=== PATIENT | male | born 1955 | race African-American/Black ===

== ENCOUNTER 2020-04-06 19:51 | Inpatient (IN) | payer MEDICARE, OTHER ==
[~2020-04-06 19:51] MED LIST: Amiodarone 150 MG/3 ML VIAL ONE; Calcium Chloride 1 GM/10 ML Abboject SYRINGE ONE; EPINEPHrine 1 MG/10 ML Abboject SYRINGE ONE; Iopamidol-370 76% 500 ML 1 ML ONE; Magnesium 5 GM/10 ML Abboject SYRINGE ONE; Sodium Bicarb 50 MEQ/50 ML Abboject 8.4% SYRINGE ONE
[2020-04-06] MEDS ORDERED: Naloxone HCl 2 mg/2 ml Syringe ONE (19:57)
[2020-04-06] MEDS ORDERED: Sodium Bicarbonate 2.5 MEQ/5 ML VIAL ONE (20:03)
[2020-04-06] MEDS ORDERED: Magnesium 2 GM/50 ML BAG (IN WATER) ONE (20:19)
[2020-04-06] MEDS ORDERED: Norepinephrine 8 MG/0.9% NS 250 ML ONE (20:21)
[2020-04-06 20:26] LABS: Base Excess-Venous -8.3 mmol/L (-2.0 to 3.0); Bicarbonate (HCO3v) 24.1 mmol/L (22.0-28.0); CO2 Tension (PvCO2) 91.8 mmHg (40.0-50.0); Calcium, Ionized 1.37 mmol/L (1.15-1.33); Chloride 100 mmol/L (98-107); Hemoglobin - Calc 11.9 g/dL (14.0-18.0); Potassium 3.6 mmol/L (3.5-5.1); Sodium 143 mmol/L (138-145); T. Carbon Dioxide 26.9 mmol/L (22.0-28.0); vO2 Saturation-calc 68.8 % (60.0-85.0)
[2020-04-06 20:34] LABS: #Basophils 0.1 thou/uL (0.0-0.2); #Eosinphils 0.1 thou/uL (0.0-0.7); #Lymphocytes 4.5 thou/uL (1.20-3.40); #Monocytes 0.7 thou/uL (0.11-0.59); #Neutrophils 5.9 thou/uL (1.40-6.50); %Basophils 0.8 % (0.0-1.0); %Eosinophils 0.8 % (0.0-10.0); %Lymphocytes 40.3 % (21.0-51.0); %Monocytes 5.8 % (0.0-10.0); %Neutrophils 52.4 % (42.0-75.0); Hemoglobin 10.3 g/dL (14.0-18.0); Mean Corpuscular HGB CONC 31.5 g/dL (32.0-36.0); Mean Corpuscular Hemoglobin 29.8 pg (27.0-31.0); Mean Corpuscular Volume 94.6 fL (78.0-98.0); Mean Platelet Volume 7.7 fL (7.4-10.4); Platelet Count 189 thou/uL (130-400); RBC Distribution Width 14.7 % (11.5-14.5); Red Blood Cell (RBC) Count 3.45 mill/uL (4.70-6.10); White Blood Cell (WBC) Count 11.2 thou/uL (4.8-10.8)
[2020-04-06 20:40] LABS: INR-International Normal Ratio 1.3; PTT 42.4 sec (22.9-36.1); Prothrombin Time 16.2 sec (12.0-14.7)
[2020-04-06 20:40] LABS: Actual Bicarbonate (HCO3a) 15.7 mEq/L (22-28); Analyzer IN Cardio ER; Base Excess (BEa) -14.3 mEq/L (-2.0 to +3.0); CO2 Tension 55.9 mmHg (35.0-45.0); Calcium, Ionized (arterial) 1.34 mmol/L (1.12-1.30); Carboxyhemoglobin (COHb) 0.1 gm% (0.0-3.0); O2 Tension (PaO2), arterial 346.4 mmHg (> 80.0); Potassium - ABG Lab 3.43 mmol/L (3.70-5.30)
[2020-04-06 20:46] LABS: pH, Arterial 7.07 (7.35-7.45)
[2020-04-06] MEDS ORDERED: Cefepime 2 GM VIAL ONE (20:46)
[2020-04-06 20:47] LABS: ALV-art Gradient 296.725 mmHg (0-20); Puncture Site LRA
[2020-04-06 20:52] LABS: ALT (SGPT) 18 U/L (8-55); AST (SGOT) 32 U/L (5-34); Albumin 2.9 g/dL (3.4-4.8); Alkaline Phosphatase 160 U/L (40-110); Anion Gap 29 mmol/L (10-20); BUN (Urea Nitrogen) 31 mg/dL (8.4-25.7); Bilirubin, Total 0.5 mg/dL (0.2-1.2); CK (CPK) 175 U/L (30-200); Calc. Creatinine Clearance 0 mL/min (70-130); Calcium 10.8 mg/dL (7.8-10.44); Carbon Dioxide 21 mmol/L (23-31); Chloride 98 mmol/L (98-107); Globulin 4.8 g/dL (2.4-3.5); Glucose 224 mg/dL (80-115); Potassium 3.7 mmol/L (3.5-5.1); Protein, Total 7.7 g/dL (5.8-8.1); Sodium 144 mmol/L (136-145)
[2020-04-06] MEDS ORDERED: Rocuronium Bromide 10 MG/ML (10ML VIAL) ONE (20:54)
[2020-04-06] MEDS ORDERED: Fentanyl 100 MCG/2 ML VIAL ONE (20:57)
[2020-04-06] MEDS ORDERED: fentaNYL Citrate/PF 2,000 MCG in Sodium Chloride 0.9% 60 ML IV SCH ×2 (21:00→21:45)
[2020-04-06 21:10] LABS: Magnesium 2.2 mg/dL (1.6-2.6)
[2020-04-06] MEDS ORDERED: Ventilator Sedation Protocol 1 EACH FS ONE (21:35)
[2020-04-06] MEDS ORDERED: Ondansetron ODT 4 MG TAB PO PRN (21:35)
[2020-04-06] MEDS ORDERED: Ondansetron PF 4 MG/2 ML Vial IVP PRN (21:35)
[2020-04-06] MEDS ORDERED: Electrolyte Replacement Protocol 1 EACH FS ONE (21:35)
[2020-04-06] MEDS ORDERED: Acetaminophen 650 MG Suppository PR PRN (21:35)
[2020-04-06] MEDS ORDERED: hydrALAZINE 20 MG/ML VIAL SLOW IVP PRN (21:35)
[2020-04-06] MEDS ORDERED: Vancomycin 1 GM/200 ML BAG ONE ×2 (21:39→21:43)
[2020-04-06] MEDS ORDERED: DISCONTINUE PREVIOUS NARCOTIC PAIN MEDICATIONS AND BENZODIAZEPINES FS SCH (21:45)
[2020-04-06] MEDS ORDERED: Propofol 1,000 MG/100 ML VIAL IV PRN (21:45)
[2020-04-06] MEDS ORDERED: Lorazepam 2 MG/ML VIAL SLOW IVP PRN (21:45)
[2020-04-06] MEDS ORDERED: Morphine 2 MG/ML VIAL SLOW IVP PRN (21:45)
[2020-04-06] MEDS ORDERED: Fentanyl BOLUS 250 ML IVPB PRN (21:45)
[2020-04-06] MEDS ORDERED: Propofol BOLUS 1,000 MG/100 ML VIAL IV PRN (21:45)
[2020-04-06 22:38] LABS: SARS-CoV-2 NAA Rapid Test Not Detected (NotDetected)
--- NOTE | 2020-04-06 22:52 | RAD ---
ONE VIEW CHEST: 04/06/20 HISTORY: Intubated. COMPARISON: 11/08/12. FINDINGS: Endotracheal tube is noted in place with tip overlying the T4 vertebral body and above the level of t he emmanuel. Nasogastric tube is also noted in place which courses in the upper abdomen, but the tip is not imaged. There are postoperative changes involving the right hemithorax with surgical clips overlying the medi astinum and right hilar region with radiopaque sutures overlying the right upper lobe. This examination is obtained in a shallow depth of inspiration. There is increased linear and patchy parenchymal densities at the right lung base which could be related to volume loss, but pneumonitis is a possibility. There is mild elevation of the right hemidiaphragm. The cardiac silhouette is magni fied by projection but does appear mildly enlarged. There is suboptimal evaluation of the left lung b ase due to overlying cardiac silhouette and soft tissue density. Vascular calcifications are seen in the thoracic aorta. No other interval change. IMPRESSION: 1. Postoperative changes right hemithorax. 2. Interstitial and patchy parenchymal densities right lung base which could be related to atele ctasis, but pneumonia is a possibility. Follow-up to resolution is recommended. 3. Endotracheal tube and nasogastric tube noted in place. POS: MARION
[2020-04-06] MEDS: Sodium Chloride 0.9% 1,000 ML IV SCH (23:18)
[2020-04-07 01:09] LABS: Lactic Acid 3.8 mmol/L (0.5-2.2)
--- NOTE | 2020-04-07 01:32 | HP ---
PRIMARY CARE PROVIDER: Enriqueta Clayton. CHIEF COMPLAINT: Found down unresponsive in cardiac arrest. HISTORY OF PRESENT ILLNESS: This is a 65-year-old male, who apparently collapsed while shopping at [email or web address]. EMS personnel were notified at which point, the patient underwent CPR and ACLS protocol. The history is obtained after discussions with the ER attending as well as review of previous records in [facility], as the patient is unresponsive on mechanical ventilation. The patient was pulseless with cardiac arrest with CPR in progress at the time of evaluation in the emergency room. The patient received multiple medications including epinephrine, calcium, sodium bicarbonate, as well as undergoing cardioversion due to SVT which progressed to ventricular tachycardia and torsades. The patient received magnesium in addition to vasopressor support with Levophed. The patient received empiric antibiotic coverage with cefepime and vancomycin during initial resuscitation. The patient was intubated prior to admission and continued on mechanical ventilation with SIMV. The patient had return of circulation with heart rates in the 120s to 130s on a Levophed infusion as well as amiodarone. The patient was referred to the Hospitalist Service for further evaluation and admission to the Critical Care Unit. PAST MEDICAL HISTORY: 1. End-stage renal disease, on hemodialysis. 2. Hepatitis C with questionable cirrhosis. 3. Congestive heart failure, unknown type. 4. History of tuberculosis treated in 1984. 5. Hypertension. 6. History of noncompliance. PAST SURGICAL HISTORY: Status post AV fistula for hemodialysis. CURRENT MEDICATIONS: Reviewed and unknown, as the patient unable to provide a history with CPR in progress. ALLERGIES: NO KNOWN DRUG ALLERGIES. FAMILY HISTORY: Positive for chronic kidney disease and diabetes mellitus. SOCIAL HISTORY: Resides in the [place], [place] area. No alcohol, tobacco, or illicit drug use. History of hepatitis C. REVIEW OF SYSTEMS: Unobtainable due to patient with respiratory failure, on mechanical ventilation. PHYSICAL EXAMINATION: VITAL SIGNS: Currently, blood pressure 161/105, pulse 104, respiratory rate is 16 on mechanical ventilation. FiO2 40%, temperature 98 degrees Fahrenheit, O2 saturation 96% on FiO2 of 40% by mechanical ventilation. GENERAL APPEARANCE: This is a 65-year-old male, ill appearing, on mechanical ventilation, obtunded. HEENT: Pupils are minimally reactive to light and accommodation. ET tube in place. Nares patent. NECK: Supple. No cervical adenopathy. No thyromegaly. No carotid bruits. No JVD noted. Scalp is atraumatic. CHEST: Bibasilar coarse breath sounds diminished in the bases with scattered crackles. CARDIOVASCULAR: S1 and S2 with tachycardia. ABDOMEN: Distended. Bowel sounds are positive. Liver margin palpable 4 cm below the costal margin on the right upper quadrant. Positive fluid wave. Umbilical hernia noted. EXTREMITIES: Generalized atrophy noted. Mild edema to the ankle region bilaterally. Pulses diminished bilaterally at the dorsalis pedis, posterior tibial, and popliteal arteries bilaterally. Capillary refill less than 2 seconds. NEUROLOGIC: Sedate on mechanical ventilation, unresponsive. PERTINENT LABORATORY AND X-RAY FINDINGS: Sodium 144, potassium 3.7, chloride 98, CO2 of 21, anion gap 29, BUN 31, creatinine 7.80, glucose 224, lactic acid level 12.5, calcium 10.8, AST 32, ALT of 18, total bilirubin 0.5, alkaline phosphatase 160. Troponin I 0.129. Albumin 2.9. Lipase 86. TSH 7.87. CBC showed a white blood cell count of 11.2, hemoglobin 10, hematocrit 33, platelet count 189 with normal differential. PT 16.2, INR 1.3, PTT 42.4. ABG dated 04/06/2020 at 2038 p.m. showed a pH of 7.07, pCO2 of 55.9, PO2 of 346, O2 saturation 99.5% on 100% FiO2 SIMV. Portable chest x-ray dated 04/06/2020, by my interpretation shows pulmonary vascular prominence in bilateral lung cortez. Questionable effusion in the left lower lung zone. Cardiomegaly. Endotracheal tube with tip above the emmanuel. Nasogastric tube below the diaphragm. [place] noted in the mid chest region. Telemetry monitoring shows ventricular tachycardia versus torsades, currently sinus mechanism with sinus tachycardia with heart rates in the 110s to 120s. ASSESSMENT AND PLAN: 1. Cardiac arrest with return of spontaneous circulation. The patient will be admitted to the Critical Care Unit. We will continue amiodarone infusion. Check 2-D transthoracic echocardiogram in the a.m. Consult Cardiology Service for further recommendations. Serial troponin I and BNP. Monitor electrolyte status and check magnesium level in the a.m. Successful return of spontaneous circulation after aggressive ACLS protocol. 2. Acute hypoxic hypercapnic respiratory failure. Continue mechanical ventilation with SIMV at 40% FiO2. Serial ABG monitoring. Ventilator sedation protocol. Consult Pulmonology Service in the a.m. Repeat portable chest x-ray in the a.m. 3. End-stage renal disease with hemodialysis. We will consult Nephrology Service for timing of next hemodialysis session. Current potassium level within normal limits. 4. Sepsis with unclear source. We will continue general sepsis protocol. Serial lactic acid monitoring. Empiric IV antibiotic therapy with cefepime and vancomycin. Blood and urine cultures pending. 5. Hypothyroidism. We will check free T4 level in the a.m. 6. Acute toxic metabolic encephalopathy. We will continue supportive management as outlined previously. CT of the brain pending. Continue to monitor mental status in the next 24 to 48 hours. 7. Prophylaxis. SCDs while in bed. Pepcid 20 mg IV b.i.d.. CODE STATUS: Full. Surrogate medical decision maker not identified. Total critical care time is 55 minutes. Job ID: [id number]
[2020-04-07 03:02] LABS: Hemoglobin 10.8 g/dL (14.0-18.0); Mean Corpuscular HGB CONC 31.9 g/dL (32.0-36.0); Mean Corpuscular Hemoglobin 29.2 pg (27.0-31.0); Mean Corpuscular Volume 91.5 fL (78.0-98.0); Mean Platelet Volume 7.3 fL (7.4-10.4); Platelet Count 229 thou/uL (130-400); RBC Distribution Width 14.6 % (11.5-14.5); Red Blood Cell (RBC) Count 3.71 mill/uL (4.70-6.10); White Blood Cell (WBC) Count 23.1 thou/uL (4.8-10.8)
[2020-04-07 03:15] LABS: Troponin I 5.373 ng/mL (< 0.028)
[2020-04-07 03:44] LABS: ALT (SGPT) 21 U/L (8-55); AST (SGOT) 54 U/L (5-34); Alkaline Phosphatase 262 U/L (40-110); Anion Gap 23 mmol/L (10-20); BUN (Urea Nitrogen) 36 mg/dL (8.4-25.7); Bilirubin, Total 0.6 mg/dL (0.2-1.2); Calc. Creatinine Clearance 13 mL/min (70-130); Calcium 8.6 mg/dL (7.8-10.44); Carbon Dioxide 23 mmol/L (23-31); Chloride 99 mmol/L (98-107); Glucose 203 mg/dL (80-115); Lipase 56 U/L (8-78); Potassium 3.9 mmol/L (3.5-5.1); Sodium 141 mmol/L (136-145)
[2020-04-07 03:51] LABS: Band 5 % (5-11); Lymphocytes 2 % (21-51); MDiff Complete? YES; Monocytes 4 % (0-10); Neutrophil 89 % (42-75)
[2020-04-07] MEDS: Amiodarone 450 MG, Admixture Fee 1 EACH in Dextrose 5% in Water 250 ML IVPB SCH ×2 (05:59→19:58)
--- NOTE | 2020-04-07 06:27 | CT ---
CT OF THE BRAIN WITHOUT CONTRAST: Date: 04/06/2020 COMPARISON: None. HISTORY: Found down at [facility]. CPR in progress. Head trauma. TECHNIQUE: Multiple contiguous axial images were obtained in a CT of the brain without contrast. FINDINGS: There are scattered hypodensities in the subcortical and periventricular white matter, likely seconda ry to small vessel ischemic disease. No large confluent infarction is seen. There is no evidence of h ydrocephalus, intracranial hemorrhage, or extra-axial fluid collection. Soft tissue swelling is seen in the posterior nasopharynx. The visualized paranasal sinuses and masto id air cells are well aerated. IMPRESSION: No evidence of acute intracranial abnormality. POS: EAA
--- NOTE | 2020-04-07 06:58 | CT ---
CTA CHEST WITH CONTRAST: Date: 04/06/2020 HISTORY: Found down in [employer]. CPR in progress. TECHNIQUE: Multiple contiguous axial images were obtained in a CTA of the chest with contrast per pulmonary embo lism protocol. 3D oblique MIP reformats and direct coronal reformats were performed. FINDINGS: There is global cardiomegaly. There is right heart dysfunction with a significant amount of extension of the contrast down the inferior vena cava. Calcifications are seen in the coronary arteries and ao rta. There is a small pericardial effusion. No hilar or mediastinal lymphadenopathy are appreciated. There is an endotracheal tube with its tip immediately at the emmanuel. A NG tube is seen with its tip in the stomach. There are fractures of the anterior left second through fourth ribs and right third through fifth rib s. Degenerative changes are seen in the spine. There are diffuse increased interstitial lung markings in the lungs. Emphysematous changes are seen t hroughout. There are scattered calcified granulomas in the lung bases. There is more confluent air sp bobbi opacity in the lung bases, right greater than left, with associated honeycombing. This may repres ent chronic parenchymal change rather than acute infiltrate, but superimposed acute infiltrate in the lung bases cannot be excluded. No pleural effusion or pneumothorax seen. Please see dedicated abdominal CT for findings below the diaphragm. IMPRESSION: 1. No evidence of pulmonary thromboembolism. 2. Cardiomegaly. 3. Slightly low-lying endotracheal tube should be withdrawn approximately 2.0 cm. 4. Bilateral rib fractures likely secondary to recent CPR. 5. Chronic lung disease with areas of air space consolidation in the lower lobes. This may represent chronic consolidation rather than acute consolidation, but acute processes are still a possibility. POS: KRYSTLE
--- NOTE | 2020-04-07 07:05 | CT ---
CT ABDOMEN AND PELVIS WITH CONTRAST: Date: 04/06/2020 COMPARISON: None. HISTORY: Patient found down in [facility] with CPR in progress. Abdominal pain and distention. TECHNIQUE: Multiple contiguous axial images were obtained in a CT of the abdomen and pelvis with contrast. Sagit nichelle and coronal reformats were performed. FINDINGS: There is a moderate amount of ascites. The anterior aspect of the mesentery demonstrates a questionab le nodular appearance. The liver has a relatively smooth contour without focal liver abnormality. There are innumerable tiny cysts in both kidneys. The majority of these cysts are low density and rep resent simple cysts. However, a few of these are higher density and well-circumscribed measuring up t o 1.5 cm in size. These could represent hyperdense cysts. The gallbladder has a partially calcified wall in the neck region. The adrenal glands, spleen, and pa ncreas are unremarkable. The large and small bowel are unremarkable. A Mckoy catheter decompresses the urinary bladder. Athero sclerotic calcifications are seen in the aorta. No abdominal or pelvic lymphadenopathy is appreciated . A central venous catheter is seen in the left inguinal region. There is a small umbilical hernia containing ascitic fluid. There is soft tissue density in the right inguinal lymph node measuring 4.8 cm in size. There is diffuse soft tissue anasarca. Please see dedicated chest CT for findings above the diaphragm . Degenerative changes are seen in the spine. IMPRESSION: 1. Moderate to large ascites. 2. Multiple bilateral renal cysts. There are hyperdense lesions in the kidneys which may represent h yperdense cysts. Renal masses cannot be entirely excluded. 3. Right inguinal mass versus enlarged lymph node. Correlate with physical examination. A hematoma i s also a possibility if the patient had attempted central venous catheter placement in the right ingu inal region. POS: EAA
[2020-04-07 07:14] LABS: Actual Bicarbonate (HCO3a) 25.8 mEq/L (22-28); Base Excess (BEa) 2.2 mEq/L (-2.0 to +3.0); Calcium, Ionized (arterial) 1.07 mmol/L (1.12-1.30); Carboxyhemoglobin (COHb) 0.9 gm% (0.0-3.0); Hemoglobin (Hb) 12.5 g/dL (14.0-18.0); O2 Tension (PaO2), arterial 305.8 mmHg (> 80.0); pH, Arterial 7.46 (7.35-7.45)
[2020-04-07 07:31] LABS: Puncture Site LRA
--- NOTE | 2020-04-07 08:30 | CON ---
DATE OF CONSULTATION: 04/07/2020 Forty minutes of critical care time. CONSULTING PHYSICIAN: Dr. James from the hospice group. REASON FOR CONSULTATION: The patient had a prolonged cardiac arrest. HISTORY OF PRESENT ILLNESS: History is obtained solely reading the notes in the chart as the patient cannot give any history because he is unconscious. He is a 65-year-old black male, who was found collapsed in a bathroom at [facility]. It is unknown how long he was down before he was found. He had at least 30 minutes of CPR before return of spontaneous circulation. I am told he did have ventricular tachycardia and torsade during the code. He received cardioversion. He has been on amiodarone drip since being in the ICU. PAST MEDICAL HISTORY: 1. End-stage renal disease, requiring hemodialysis. 2. Hepatitis C. 3. Congestive heart failure, unknown type. 4. Tuberculosis, treated in 1984. 5. Hypertension. 6. Medical noncompliance. PAST SURGICAL HISTORY: He has a right forearm AV fistula. MEDICATIONS: Prior to admission are not known. ALLERGIES: NONE. FAMILY MEDICAL HISTORY: Remarkable for chronic kidney disease and diabetes mellitus. SOCIAL HISTORY: Lives in [place]. Not sure about alcohol, tobacco, and illicit drug use. REVIEW OF SYSTEMS: Twelve-point review of systems cannot be obtained because the patient is unconscious and is on mechanical ventilation. PHYSICAL EXAMINATION: VITAL SIGNS: Heart rate 86, blood pressure 145/88, O2 saturation 95%, respiratory rate 20, temperature 99.8. The patient is 6 feet tall, weighs 167 pounds. His BMI is 22.7. HEENT: Remarkable for pinpoint pupils that do not react to light. Sclerae are muddy. Oropharynx has endotracheal tube and orogastric tube in place. NECK: No adenopathy or JVD. LUNGS: Coarse breath sounds bilaterally. CARDIOVASCULAR: S1, S2, regular without audible murmur. ABDOMEN: Protuberant with inverted umbilicus. EXTREMITIES: He has a left groin central line. NEUROLOGIC: He does not withdraw to painful stimuli to the extremities. He does not respond to pain elsewhere, does not follow commands. He does have some movement of his neck, which triggers the ventilator. LABORATORY DATA: Sodium 141, potassium 3.9, chloride 99, CO2 of 23, BUN 36, creatinine 7.7, glucose 203. Lactate was initially 12.5, is now 3.0. Troponin has gradually increased from 0.129 to 5.37. His albumin is 3.0, AST 54, ALT 21. White blood cell count 23.1, hematocrit 33.9, and platelet count 229. INR 1.3. The pH is 7.46, pCO2 of 37, pO2 of 305. His COVID test was negative. Chest x-ray shows a slightly elevated right hemidiaphragm. There is no acute mass, effusion, or infiltrates. CT of the abdomen and pelvis was negative. CT of the chest showed no pulmonary emboli. CT of the brain was negative. ASSESSMENT: 1. Status post prolonged cardiopulmonary arrest. Inciting event seems to have been a primary cardiac event such as an arrhythmia or myocardial infarction. 2. Severe anoxic brain injury. 3. End-stage renal disease. 4. History of hypertension. 5. Acute respiratory failure, requiring mechanical ventilation. PLAN: 1. Continue supportive care and mechanical ventilation. I have adjusted the settings. 2. Cardiology and Nephrology consultation. 3. Monitor neurologic status. I think that will be the clark to his ultimate prognosis. 4. DVT prophylaxis. The patient will be receiving anticoagulation during dialysis sessions. 5. GI prophylaxis, Pepcid. 6. Prognosis is quite poor. Job ID: [id number]
--- NOTE | 2020-04-07 08:58 | RAD ---
PORTABLE CHEST: HISTORY: Respiratory failure. Cardiac arrest. COMPARISON: 04/06/2020. FINDINGS: ET tube and NG tube are noted. Cardiomegaly. Patchy infiltrate in the right lung base obscures the right hemidiaphragm. Evidence of small effusion. Left lung base is poorly evaluated due to cardiome kelly and exposure fractures. The left hemidiaphragm is delineated and the left lung base appears nicci ar. IMPRESSION: Right basilar atelectasis and infiltrate, unchanged from yesterday. POS: AGW
[2020-04-07] MEDS ORDERED: FLU VACC QS2020-21(65YR UP)/PF 240 MCG/0.7 ML SYRINGE IM ONE (09:00)
[2020-04-07] MEDS: Famotidine/PF 20 mg/2ml Vial SLOW IVP SCH (10:04)
[2020-04-07] MEDS: Cefepime 1 GM in Sodium Chloride 0.9% 100 ML IVPB SCH (10:04)
[2020-04-07] MEDS ORDERED: Aspirin Chewable 81 MG TAB PER TUBE SCH (11:45)
[2020-04-07] MEDS ORDERED: Atorvastatin Calcium 40 MG TAB PO SCH (11:45)
[2020-04-07] MEDS: Sodium Chloride 0.9% 1,000 ML IV SCH (11:57)
--- NOTE | 2020-04-07 12:03 | CON ---
DATE OF CONSULTATION: HISTORY OF PRESENT ILLNESS: The patient is an unfortunate 65-year-old gentleman, who suffered a cardiac arrest. The patient has a history of end- stage renal disease. The patient's family states he has no known cardiac history. They did report he has had several syncopal episodes. The patient yesterday suddenly lost consciousness. He was emergently resuscitated. The patient is in the ICU. He is not responsive and unable to give a coherent history. PAST MEDICAL HISTORY: 1. End-stage renal disease. 2. Hepatitis C. 3. Hypertension. PAST SURGICAL HISTORY: AV fistula. ALLERGIES: NONE. SOCIAL HISTORY: Lives alone in [place]. REVIEW OF SYSTEMS: Not obtainable. MEDICATIONS: Unknown. PHYSICAL EXAMINATION: GENERAL: This is a thin gentleman, who is on a ventilator. VITAL SIGNS: With a blood pressure of 142/60 and heart rate is 87. NECK: Showed no jugular venous distention. LUNGS: Coarse breath sounds bilateral. HEART: Regular rate and rhythm. Normal S1 and S2 with a holosystolic murmur. ABDOMEN: Distended. EXTREMITIES: Showed trace edema. LABORATORY RESULTS: His sodium was 141, potassium 3.9, chloride 99, bicarb 36, and creatinine was 7.7. Troponin was 5.3. White blood cell count is 23.1, hemoglobin 10.8, hematocrit 33.9, and his platelets are 229. INR was 1.3. EKG sinus tachycardia with a right bundle-branch block. IMPRESSION AND PLAN: 1. Status post cardiac arrest. 2. Myocardial infarction. 3. End-stage renal disease. 4. Hypertension. This unfortunate gentleman suffered from myocardial infarction and has suffered severe anoxic brain injury. From a cardiac standpoint, he was on amiodarone. I would recommend we will treat the patient with aspirin and lipid-lowering medication. We will follow this patient with you through his hospitalization. Critical care note time 30 minutes. Job ID: [id number] MTDD
--- NOTE | 2020-04-07 16:26 | PDOC.HOSPP ---
- Subjective Encounter Date: 04/07/20 Encounter Time: 09:30 Subjective: Pt seen for followup re: cardiac arrest. He is currently intubated, could not complete review of systems. - Objective Vital Signs & Weight: Vital Signs (12 hours) Temp Pulse Resp Pulse Ox 04/07/20 14:08 89 04/07/20 12:00 99.5 F 29 H 04/07/20 10:14 85 04/07/20 10:00 18 04/07/20 08:00 28 H 95 04/07/20 07:05 87 04/07/20 07:00 100.8 F H 04/07/20 06:00 29 H Weight Admit Weight 210 lb 1.608 oz Weight 167 lb 8.821 oz Most Recent Monitor Data Heart Rate from ECG 88 NIBP 141/87 NIBP BP-Mean 105 Respiration from ECG 26 SpO2 95 I&O: 04/06/20 04/07/20 04/08/20 06:59 06:59 06:59 Intake Total 253.5 160 Output Total 200 Balance 53.5 160 Result Diagrams: 04/07/20 02:31 04/07/20 02:31 Additional Labs: Accuchecks 04/07/20 04/07/20 16:04 05:47 POC Glucose 75 141 H I reviewed patient's labs and MAR EKG Reviewed by me: Yes (Normal sinus rhythm on telemetry) Hospitalist ROS - Review of Systems ROS unobtainable: due to endotracheal tube - Medication Medications: Active Medications Generic Name Dose Route Start Last Admin Trade Name Freq PRN Reason Stop Dose Admin Famotidine 20 mg 04/07/20 09:00 04/07/20 10:04 Famotidine/Pf 20 Mg/2ml Vial SLOW IVP 20 mg DAILY KARENA Administration Amiodarone HCl 450 mg/ 259 mls @ 0 mls/hr 04/06/20 20:30 04/07/20 05:59 Miscellaneous Medication 1 IVPB 259 mls each/ Dextrose/Water INF KARENA Administration Protocol As Directed Sodium Chloride 1,000 mls @ 75 mls/hr 04/06/20 21:35 04/07/20 11:57 Normal Saline 0.9% IV Not Given .[id number] KARENA Cefepime HCl 1 gm/ Sodium 100 mls @ 200 mls/hr 04/07/20 09:00 04/07/20 10:04 Chloride IVPB 100 mls DAILY KARENA Administration - Exam General - other findings: Intubated ENT: moist mucosa Heart: RRR Respiratory: CTAB Gastrointestinal: soft Skin: no rashes Neurological - other findings: No gag reflex Psychiatric - other findings: Unable to assess Hosp A/P (1) Cardiac arrest Code(s): I46.9 - CARDIAC ARREST, CAUSE UNSPECIFIED Status: Acute (2) Acute hypercapnic respiratory failure Code(s): J96.02 - ACUTE RESPIRATORY FAILURE WITH HYPERCAPNIA Status: Acute (3) Elevated troponin Code(s): R77.8 - OTHER SPECIFIED ABNORMALITIES OF PLASMA PROTEINS Status: Acute (4) End stage renal disease on dialysis Code(s): N18.6 - END STAGE RENAL DISEASE; Z99.2 - DEPENDENCE ON RENAL DIALYSIS Status: Chronic (5) Hypertension Code(s): I10 - ESSENTIAL (PRIMARY) HYPERTENSION Status: Chronic - Plan dimas catheter, continue antibiotics, DVT proph w/SCDs Continue IV cefepime. Patient currently intubated and mechanically ventilated, in CCU. Prognosis guarded. COVID-19 test negative. Left ventricle ejection fraction 50 to 55%. Cardiology and PCCM services following.
[2020-04-07] MEDS ORDERED: Acetaminophen 650 MG/20.3 ML UDCUP PO PRN (19:35)
[2020-04-07] MEDS ORDERED: Dextrose 5% in Water 1,000 ML IV PRN (19:38)
[2020-04-07] MEDS: Dextrose 50% Abboject 50 ML SYRINGE SLOW IVP PRN ×2 (19:58→23:53)
[2020-04-08] MEDS: Sodium Chloride 0.9% 1,000 ML IV SCH (00:30)
--- NOTE | 2020-04-08 00:57 | CON ---
DATE OF CONSULTATION: CONSULTING PHYSICIAN: Remedios Castro MD. REQUESTING PHYSICIAN: Paolo Manzo MD REASON FOR CONSULTATION: End-stage renal disease. IMPRESSION: 1. End-stage renal disease on a Friday, , Friday dialysis; dialyzed yesterday. 2. End-stage liver disease in the context of possible hepatitis C infection. 3. 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 4. Cardiac arrest . PLAN: 1. No indication for hemodialysis at this point, though the patient does have gross ascites, which he will benefit from therapeutic paracentesis. 2. Depending on the progress of this patient, decision will be made tomorrow as it is related to possible hemodialysis. HISTORY OF PRESENT ILLNESS: History is that of a 65-year-old unfortunate gentleman with end-stage renal disease, end-stage liver disease with ascites, status post recurrent paracentesis, who had dialysis yesterday and was subsequently found down at for unknown duration of time. The patient was resuscitated and brought into the ER, intubated, could not get any history from this patient at this point. PAST MEDICAL HISTORY: As documented in the body of the history. ALLERGIES: NONE. SOCIAL HISTORY: The patient is a [place] resident. No alcohol. No illicit drug use. REVIEW OF SYSTEMS: Could not be obtained at this point. MEDICATIONS: Documented on [facility]. PHYSICAL EXAMINATION: GENERAL: The patient is found to be on life support, hemodynamically stable. HEENT: Remarkable for endotracheal tube in place. CARDIOVASCULAR SYSTEM: First and second heart sounds were heard. RESPIRATORY SYSTEM: Showed some transmitted vented sounds. DIGESTIVE SYSTEM: Revealed a distended abdomen with tense ascites. EXTREMITIES: Showed minimal edema. SUMMARY: A 65-year-old gentleman with end-stage renal disease, found down and now on life support. Thank you for this consultation. We will follow with you. Job ID: [id number]
[2020-04-08] MEDS ORDERED: Bacteriostatic Water 30 ML VIAL FS PRN ×2 (01:30→01:33)
[2020-04-08] MEDS ORDERED: methylPREDNISolone Sod Succ/PF 125 MG/2 ML VIAL IVP SCH (01:45)
[2020-04-08] MEDS: Dextrose 10% in Water 1,000 ML IV SCH (01:46)
[2020-04-08 04:56] LABS: #Lymphocytes 0.6 thou/uL (1.20-3.40); #Monocytes 0.5 thou/uL (0.11-0.59); #Neutrophils 16.6 thou/uL (1.40-6.50); %Basophils 0.2 % (0.0-1.0); %Lymphocytes 3.6 % (21.0-51.0); %Monocytes 2.9 % (0.0-10.0); %Neutrophils 93.3 % (42.0-75.0); Mean Corpuscular HGB CONC 31.7 g/dL (32.0-36.0); Mean Corpuscular Hemoglobin 29.2 pg (27.0-31.0); Mean Corpuscular Volume 92.4 fL (78.0-98.0); Mean Platelet Volume 8.1 fL (7.4-10.4); Platelet Count 217 thou/uL (130-400); RBC Distribution Width 14.6 % (11.5-14.5); Red Blood Cell (RBC) Count 3.77 mill/uL (4.70-6.10); White Blood Cell (WBC) Count 17.8 thou/uL (4.8-10.8)
[2020-04-08 05:33] LABS: ALT (SGPT) 17 U/L (8-55); AST (SGOT) 51 U/L (5-34); Albumin 3.1 g/dL (3.4-4.8); Alkaline Phosphatase 203 U/L (40-110); Anion Gap 28 mmol/L (10-20); BUN (Urea Nitrogen) 46 mg/dL (8.4-25.7); Bilirubin, Total 0.7 mg/dL (0.2-1.2); Calc. Creatinine Clearance 8 mL/min (70-130); Calcium 8.3 mg/dL (7.8-10.44); Carbon Dioxide 19 mmol/L (23-31); Chloride 98 mmol/L (98-107); Globulin 5.4 g/dL (2.4-3.5); Glucose 164 mg/dL (80-115); Potassium 4.6 mmol/L (3.5-5.1); Protein, Total 8.5 g/dL (5.8-8.1); Sodium 140 mmol/L (136-145)
[2020-04-08] MEDS ORDERED: methylPREDNISolone Sod Succ 40 MG VIAL IVP SCH ×2 (06:00→09:00)
[2020-04-08] MEDS: methylPREDNISolone Sod Succ 40 MG VIAL IVP SCH ×3 (07:32→20:26)
[2020-04-08] MEDS: Famotidine/PF 20 mg/2ml Vial SLOW IVP SCH (07:32)
[2020-04-08] MEDS: Cefepime 1 GM in Sodium Chloride 0.9% 100 ML IVPB SCH (07:32)
[2020-04-08] MEDS: Aspirin Chewable 81 MG TAB PER TUBE SCH (07:32)
[2020-04-08 07:49] LABS: Actual Bicarbonate (HCO3a) 15.2 mEq/L (22-28); Base Excess (BEa) -10.9 mEq/L (-2.0 to +3.0); CO2 Tension 34.4 mmHg (35.0-45.0); Calcium, Ionized (arterial) 1.02 mmol/L (1.12-1.30); Carboxyhemoglobin (COHb) 0.2 gm% (0.0-3.0); Hemoglobin (Hb) 11.8 g/dL (14.0-18.0); O2 Tension (PaO2), arterial 98.3 mmHg (> 80.0); Potassium - ABG Lab 5.07 mmol/L (3.70-5.30); pH, Arterial 7.26 (7.35-7.45)
[2020-04-08 07:51] LABS: Puncture Site LRA
--- NOTE | 2020-04-08 09:38 | RAD ---
PORTABLE CHEST: HISTORY: Respiratory failure. CCU followup. COMPARISON: 04/07/2020. FINDINGS/IMPRESSION: ET tube and NG tube are in place. Cardiomegaly. Hazy patchy infiltrates and atelectasis in the righ t lung base again noted. Not significantly changed from yesterday. POS: AGW
--- NOTE | 2020-04-08 10:24 | PRG ---
DATE OF SERVICE: 04/08/2020 30 minutes critical care time. SUBJECTIVE: The patient remains intubated on mechanical ventilation. OBJECTIVE: VITAL SIGNS: His temperature was last measured 100.3, but has been as high as 101.4; pulse is 83; blood pressure 129/79; O2 saturation 100%, respiratory rate in the 30s. NEUROLOGIC: He does not follow any commands. Specifically, he does not withdrawal to pain, but does have spontaneous respirations. HEENT: [place] sclerae. Oropharynx clear. NECK: No JVD. LUNGS: Fairly clear anteriorly. CARDIOVASCULAR: S1 and S2, regular. ABDOMEN: Protuberant. EXTREMITIES: No clubbing or cyanosis. LABORATORY DATA: White blood cell count 17.8, hematocrit 34.8, and platelet count 217. PH 7.26, pCO2 of 34, pO2 of 98. Sodium 140, potassium 4.6, chloride 98, CO2 of 19, BUN 46, creatinine 9.1, glucose 164. Chest x-ray is unchanged. ASSESSMENT: 1. Acute respiratory failure, requiring mechanical ventilation. 2. Status post prolonged cardiac arrest. 3. Chronic renal failure, requiring hemodialysis. 4. Metabolic acidosis, probably in large part attributable to his chronic renal failure. RECOMMENDATIONS: 1. It does not appear that the patient's neurologic status will be improving. I will try to speak with the family to measure how they want to proceed. 2. Continue supportive care with mechanical ventilation. The patient's prognosis for recovery is extremely poor. Job ID: [id number]
[2020-04-08] MEDS: Dextrose 50% Abboject 50 ML SYRINGE SLOW IVP PRN (14:00)
[2020-04-08 15:53] LABS: HBSAg Index 0.17 S/CO (0-0.99); Hep B Surf Ag Non-Reactive S/CO (NonReactive)
--- NOTE | 2020-04-08 16:03 | PDOC.HOSPP ---
- Subjective Subjective: pt was seen and examined. d/w family members at bedside, niece and . they are leaning toward hospice/comfort cares but need more time - Objective Vital Signs & Weight: Vital Signs (12 hours) Temp Pulse Resp BP Pulse Ox 04/08/20 15:00 99 F 04/08/20 14:51 80 139/82 04/08/20 13:53 35 H 04/08/20 10:53 79 126/80 04/08/20 07:41 84 131/82 04/08/20 07:18 38 H 100 04/08/20 05:56 38 H Weight Admit Weight 210 lb 1.608 oz Weight 160 lb 7.944 oz Most Recent Monitor Data Heart Rate from ECG 78 NIBP 136/82 NIBP BP-Mean 100 Respiration from ECG 32 SpO2 100 I&O: 04/07/20 04/08/20 04/09/20 06:59 06:59 06:59 Intake Total 253.5 971 0 Output Total 200 300 0 Balance 53.5 671 0 Result Diagrams: 04/08/20 04:00 04/08/20 04:00 Additional Labs: Accuchecks 04/08/20 04/08/20 04/08/20 13:57 09:12 05:31 POC Glucose 66 L 84 110 H 04/08/20 04/08/20 04/08/20 03:53 02:55 01:53 POC Glucose 190 H 131 H 97 04/08/20 04/07/20 04/07/20 01:03 21:14 16:04 POC Glucose 137 H 120 H 75 Radiology Reviewed by me: Yes EKG Reviewed by me: Yes Hospitalist ROS - Medication Medications: Active Medications Generic Name Dose Route Start Last Admin Trade Name Freq PRN Reason Stop Dose Admin Acetaminophen 650 mg 04/07/20 19:35 04/07/20 19:57 Acetaminophen 650 Mg/20.3 Ml Udcup PO 650 mg Q4H PRN Administration Fever/Mild Pain Aspirin 81 mg 04/08/20 09:00 04/08/20 07:32 Aspirin Chewable 81 Mg Tab PER TUBE 81 mg DAILY KARENA Administration Dextrose/Water 25 gm 04/07/20 19:38 04/08/20 14:00 Dextrose 50% Abboject 50 Ml Syringe SLOW IVP 25 gm PRN PRN Administration Hypoglycemia Famotidine 20 mg 04/07/20 09:00 04/08/20 07:32 Famotidine/Pf 20 Mg/2ml Vial SLOW IVP 20 mg DAILY KARENA Administration Cefepime HCl 1 gm/ Sodium 100 mls @ 200 mls/hr 04/07/20 09:00 04/08/20 07:32 Chloride IVPB 100 mls DAILY KARENA Administration Dextrose/Water 1,000 mls @ 35 mls/hr 04/08/20 01:15 04/08/20 01:46 Dextrose 10% In Water IV 1,000 mls .Q24H KARENA Administration Methylprednisolone Sodium Succinate 40 mg 04/08/20 09:00 04/08/20 07:32 Methylprednisolone Sod Succ 40 Mg Vial IVP 40 mg 0300,0900,1500,2100 KARENA Administration Morphine Sulfate 2 mg 04/06/20 21:45 04/07/20 23:42 Morphine 2 Mg/Ml Vial SLOW IVP 05/06/20 21:45 2 mg Q1H PRN Administration Breakthrough Pain/Agitation - Exam General - other findings: intubated Eye: PERRL ENT: normocephalic atraumatic Neck: supple Heart: RRR Respiratory: CTAB Gastrointestinal: soft, non-tender Extremities: no cyanosis, no clubbing Skin: normal turgor Neurological - other findings: intubated Musculoskeletal: normal tone Hosp A/P (1) NSTEMI (non-ST elevated myocardial infarction) Code(s): I21.4 - NON-ST ELEVATION (NSTEMI) MYOCARDIAL INFARCTION Status: Acute (2) Acute hypercapnic respiratory failure Code(s): J96.02 - ACUTE RESPIRATORY FAILURE WITH HYPERCAPNIA Status: Acute (3) Cardiac arrest Code(s): I46.9 - CARDIAC ARREST, CAUSE UNSPECIFIED Status: Acute (4) End stage renal disease on dialysis Code(s): N18.6 - END STAGE RENAL DISEASE; Z99.2 - DEPENDENCE ON RENAL DIALYSIS Status: Chronic (5) Hypertension Code(s): I10 - ESSENTIAL (PRIMARY) HYPERTENSION Status: Chronic - Plan Pt suffered prolonged pre-hospital cardiopulmonary arrest, resulted with significant anoxic brain injury. Pt remains intubated and mechanically ventilated. d/w family members, they are considering hospice/comfort cares. Palliative team has been consulted. cont supportive cares. Prognosis poor.
[2020-04-08] MEDS: Amiodarone 200 MG TAB PER TUBE SCH (20:25)
[2020-04-08] MEDS: Atorvastatin Calcium 40 MG TAB PO SCH (20:25)
[2020-04-09] MEDS: Dextrose 10% in Water 1,000 ML IV SCH (03:27)
[2020-04-09] MEDS: methylPREDNISolone Sod Succ 40 MG VIAL IVP SCH ×2 (03:28→07:18)
[2020-04-09 04:14] LABS: #Lymphocytes 0.8 thou/uL (1.20-3.40); #Monocytes 0.8 thou/uL (0.11-0.59); #Neutrophils 12.1 thou/uL (1.40-6.50); %Basophils 0.1 % (0.0-1.0); %Eosinophils 0.1 % (0.0-10.0); %Neutrophils 87.8 % (42.0-75.0); Hemoglobin 10.7 g/dL (14.0-18.0); Mean Corpuscular HGB CONC 31.2 g/dL (32.0-36.0); Mean Corpuscular Hemoglobin 28.8 pg (27.0-31.0); Mean Corpuscular Volume 92.4 fL (78.0-98.0); Mean Platelet Volume 8.1 fL (7.4-10.4); Platelet Count 199 thou/uL (130-400); RBC Distribution Width 14.5 % (11.5-14.5); Red Blood Cell (RBC) Count 3.72 mill/uL (4.70-6.10); White Blood Cell (WBC) Count 13.8 thou/uL (4.8-10.8)
[2020-04-09 04:48] LABS: ALT (SGPT) 53 U/L (8-55); AST (SGOT) 170 U/L (5-34); Albumin 2.9 g/dL (3.4-4.8); Alkaline Phosphatase 176 U/L (40-110); Anion Gap 22 mmol/L (10-20); BUN (Urea Nitrogen) 40 mg/dL (8.4-25.7); Bilirubin, Total 0.6 mg/dL (0.2-1.2); Calc. Creatinine Clearance 12 mL/min (70-130); Calcium 8.4 mg/dL (7.8-10.44); Carbon Dioxide 25 mmol/L (23-31); Chloride 93 mmol/L (98-107); Globulin 5.4 g/dL (2.4-3.5); Glucose 214 mg/dL (80-115); Potassium 4.3 mmol/L (3.5-5.1); Protein, Total 8.3 g/dL (5.8-8.1); Sodium 136 mmol/L (136-145)
[2020-04-09] MEDS: Cefepime 1 GM in Sodium Chloride 0.9% 100 ML IVPB SCH (07:17)
[2020-04-09] MEDS: Aspirin Chewable 81 MG TAB PER TUBE SCH (07:17)
[2020-04-09] MEDS: Amiodarone 200 MG TAB PER TUBE SCH ×2 (07:17→21:00)
[2020-04-09] MEDS: Famotidine/PF 20 mg/2ml Vial SLOW IVP SCH (07:18)
[2020-04-09 07:19] LABS: Actual Bicarbonate (HCO3a) 24.5 mEq/L (22-28); Base Excess (BEa) 1.1 mEq/L (-2.0 to +3.0); CO2 Tension 35.1 mmHg (35.0-45.0); Calcium, Ionized (arterial) 1.02 mmol/L (1.12-1.30); Carboxyhemoglobin (COHb) 0.9 gm% (0.0-3.0); Hemoglobin (Hb) 12.5 g/dL (14.0-18.0); Potassium - ABG Lab 4.23 mmol/L (3.70-5.30); pH, Arterial 7.46 (7.35-7.45)
[2020-04-09 07:33] LABS: Puncture Site LRA
[2020-04-09 07:34] LABS: ALV-art Gradient 119.325 mmHg (0-20)
--- NOTE | 2020-04-09 07:49 | PRG ---
DATE OF SERVICE: 04/09/2020 SUBJECTIVE: Mr. Page remains comatose on mechanical ventilation. OBJECTIVE: NEUROLOGIC: Flat aside from having spontaneous respirations on the ventilator. VITAL SIGNS: Temperature 99.1, pulse 78, blood pressure 156/92, O2 saturation 100%. Intake 1939, output 0. HEENT: Unchanged. NECK: No JVD. LUNGS: Coarse breath sounds. CARDIOVASCULAR: S1 and S2, regular. ABDOMEN: Soft and nontender. EXTREMITIES: Slight edema. LABORATORY DATA: White blood cell count 13.8, hematocrit 34.4, and platelet count 199. PH of 7.46, pCO2 of 35, pO2 of 122 on SIMV, rate 14, tidal volume 550, PEEP 5, pressure support 10, FiO2 of 40%. Sodium 136, potassium 4.3, chloride 93, CO2 of 25, BUN 40, creatinine 6.3, and glucose 214. His x-ray shows no change. ASSESSMENT: 1. Status post prolonged cardiopulmonary arrest. 2. Severe anoxic brain injury. 3. Chronic renal failure, requiring hemodialysis. PLAN: We are now almost 72 hours out from the initial event. I do not think that we will see any improvement in the patient's neurologic status. This was conveyed to the patient's niece yesterday. Apparently, she is the primary decision maker for the patient. I will go ahead and stop the steroids. I will adjust the ventilator rate. These changes are really of no consequence and I think that the ultimate goal should be to communicate to the niece that care should be withdrawn as there is no hope for functional recovery. Job ID: [id number]
--- NOTE | 2020-04-09 09:40 | RAD ---
AP CHEST: INDICATION: Respiratory failure and cardiac arrest. CCU followup. COMPARISON: 04/08/2020. FINDINGS: ET tube and NG tube remain in place. There are hazy patchy infiltrates in the right lower lung which do not appear significantly changed. Mild vascular engorgement is again noted. Bilateral perihilar infiltrates and haziness appear stable. IMPRESSION: No acute interval change. POS: AGW
[2020-04-09] MEDS ORDERED: hydrALAZINE 20 MG/ML VIAL SLOW IVP PRN (12:10)
--- NOTE | 2020-04-09 17:26 | PDOC.HOSPP ---
- Subjective Subjective: Patient was seen examined at bedside. Discussed with nursing staff. No evidence of neurological recovery. His pupils fixed dilated. He had no gag reflex. No Babinski sign. He is not on sedation, or paralytics at this point. He is mechanically ventilated. I called and discussed with ADELINA, Ms. Eli Coates and her family are okay with comfort care, however, "we do not want to pull the plug". I have educated her more about comfort care, and palliative care team will be in contact with her to help assist with transition to comfort management. - Objective Vital Signs & Weight: Vital Signs (12 hours) Temp Pulse Resp BP Pulse Ox 04/09/20 17:14 31 H 04/09/20 16:00 99 F 04/09/20 15:23 76 169/104 H 04/09/20 14:28 76 169/104 H 04/09/20 11:59 99.5 F 04/09/20 11:00 99.5 F 04/09/20 10:37 102 H 159/92 H 04/09/20 07:12 74 156/92 H 04/09/20 07:07 26 H 100 04/09/20 07:00 99.1 F 04/09/20 06:00 24 H Weight Admit Weight 210 lb 1.608 oz Weight 156 lb 4.924 oz Most Recent Monitor Data Heart Rate from ECG 110 NIBP 152/94 NIBP BP-Mean 113 Respiration from ECG 28 SpO2 100 I&O: 04/08/20 04/09/20 04/10/20 06:59 06:59 06:59 Intake Total 971 1939 0 Output Total 300 0 0 Balance 671 1939 0 Result Diagrams: 04/09/20 03:45 04/09/20 03:45 Additional Labs: Accuchecks 04/09/20 04/09/20 04/08/20 15:13 10:25 23:42 POC Glucose 181 H 159 H 161 H 04/08/20 04/08/20 20:27 17:28 POC Glucose 102 H 111 H Radiology Reviewed by me: Yes EKG Reviewed by me: Yes Hospitalist ROS - Medication Medications: Active Medications Generic Name Dose Route Start Last Admin Trade Name Freq PRN Reason Stop Dose Admin Acetaminophen 650 mg 04/07/20 19:35 04/07/20 19:57 Acetaminophen 650 Mg/20.3 Ml Udcup PO 650 mg Q4H PRN Administration Fever/Mild Pain Amiodarone HCl 400 mg 04/08/20 21:00 04/09/20 07:17 Amiodarone 200 Mg Tab PER TUBE 400 mg BID KARENA Administration Aspirin 81 mg 04/08/20 09:00 04/09/20 07:17 Aspirin Chewable 81 Mg Tab PER TUBE 81 mg DAILY KARENA Administration Atorvastatin Calcium 40 mg 04/08/20 21:00 04/08/20 20:25 Atorvastatin Calcium 40 Mg Tab PO 40 mg HS KARENA Administration Dextrose/Water 25 gm 04/07/20 19:38 04/08/20 14:00 Dextrose 50% Abboject 50 Ml Syringe SLOW IVP 25 gm PRN PRN Administration Hypoglycemia Famotidine 20 mg 04/07/20 09:00 04/09/20 07:18 Famotidine/Pf 20 Mg/2ml Vial SLOW IVP 20 mg DAILY KARENA Administration Hydralazine HCl 10 mg 04/09/20 12:10 04/09/20 15:23 Hydralazine 20 Mg/Ml Vial SLOW IVP 10 mg Q6H PRN Administration SBP > 180 , DBP > 100 Cefepime HCl 1 gm/ Sodium 100 mls @ 200 mls/hr 04/07/20 09:00 04/09/20 07:17 Chloride IVPB 100 mls DAILY KARENA Administration Dextrose/Water 1,000 mls @ 35 mls/hr 04/08/20 01:15 04/09/20 03:27 Dextrose 10% In Water IV 1,000 mls .Q24H KARENA Administration Morphine Sulfate 2 mg 04/06/20 21:45 04/07/20 23:42 Morphine 2 Mg/Ml Vial SLOW IVP 05/06/20 21:45 2 mg Q1H PRN Administration Breakthrough Pain/Agitation - Exam General - other findings: remains intubated Eye: PERRL ENT: normocephalic atraumatic Neck: supple Heart: RRR, no murmur Respiratory: CTAB, no wheezes Gastrointestinal: soft, non-tender Extremities: no cyanosis Skin: normal turgor Neurological: cranial nerve grossly intact Musculoskeletal: normal tone, normal strength Psychiatric: normal affect, normal behavior, A&O x 3 Hosp A/P (1) NSTEMI (non-ST elevated myocardial infarction) Code(s): I21.4 - NON-ST ELEVATION (NSTEMI) MYOCARDIAL INFARCTION Status: Acute (2) Acute hypercapnic respiratory failure Code(s): J96.02 - ACUTE RESPIRATORY FAILURE WITH HYPERCAPNIA Status: Acute (3) Cardiac arrest Code(s): I46.9 - CARDIAC ARREST, CAUSE UNSPECIFIED Status: Acute (4) End stage renal disease on dialysis Code(s): N18.6 - END STAGE RENAL DISEASE; Z99.2 - DEPENDENCE ON RENAL DIALYSIS Status: Chronic (5) Hypertension Code(s): I10 - ESSENTIAL (PRIMARY) HYPERTENSION Status: Chronic - Plan Pt suffered prolonged pre-hospital cardiopulmonary arrest, resulted with significant anoxic brain injury. Pt remains intubated and mechanically ventilated. No evidence of neurological recovery. I have discussed with his POA, Ms Garcia (niece) again today with regarding goal of cares. She and family are OK with comfort cares, but "do not want to pull the plug". I educated her more about goal comfort cares. Palliative team to reach out to her tomorrow to help with transitioning him to comfort cares. Cont supportive cares for now.
[2020-04-09] MEDS: Atorvastatin Calcium 40 MG TAB PO SCH (21:00)
[2020-04-10] MEDS: Dextrose 10% in Water 1,000 ML IV SCH (02:59)
[2020-04-10 04:14] LABS: #Lymphocytes 0.6 thou/uL (1.20-3.40); #Monocytes 0.9 thou/uL (0.11-0.59); %Eosinophils 0.1 % (0.0-10.0); %Lymphocytes 3.9 % (21.0-51.0); %Monocytes 5.9 % (0.0-10.0); %Neutrophils 90.1 % (42.0-75.0); Hemoglobin 10.2 g/dL (14.0-18.0); Mean Corpuscular HGB CONC 31.4 g/dL (32.0-36.0); Mean Corpuscular Hemoglobin 28.7 pg (27.0-31.0); Mean Corpuscular Volume 91.4 fL (78.0-98.0); Mean Platelet Volume 8.3 fL (7.4-10.4); Platelet Count 199 thou/uL (130-400); RBC Distribution Width 14.5 % (11.5-14.5); Red Blood Cell (RBC) Count 3.56 mill/uL (4.70-6.10); White Blood Cell (WBC) Count 15.5 thou/uL (4.8-10.8)
[2020-04-10 04:36] LABS: ALT (SGPT) 43 U/L (8-55); AST (SGOT) 131 U/L (5-34); Alkaline Phosphatase 157 U/L (40-110); Anion Gap 23 mmol/L (10-20); BUN (Urea Nitrogen) 61 mg/dL (8.4-25.7); Bilirubin, Total 0.5 mg/dL (0.2-1.2); Calc. Creatinine Clearance 10 mL/min (70-130); Calcium 8.2 mg/dL (7.8-10.44); Carbon Dioxide 24 mmol/L (23-31); Chloride 92 mmol/L (98-107); Globulin 5.2 g/dL (2.4-3.5); Glucose 174 mg/dL (80-115); Potassium 4.3 mmol/L (3.5-5.1); Protein, Total 8.2 g/dL (5.8-8.1); Sodium 135 mmol/L (136-145)
--- NOTE | 2020-04-10 06:49 | PRG ---
DATE OF SERVICE: 04/09/2020 SUBJECTIVE: The patient was seen and examined, still on life support. OBJECTIVE: VITAL SIGNS: Febrile with temperature 100.1, heart rate 111, blood pressure 150/92, pulse , respiratory rate in the 30s, O2 saturation 95%. HEENT: Remarkable for endotracheal tube in place. CARDIOVASCULAR SYSTEM: First and second heart sounds were heard. RESPIRATORY SYSTEM: DIGESTIVE SYSTEM: Obese . EXTREMITIES: No significant peripheral edema. SKIN: No new gross rash. LYMPHATICS: No peripheral lymphadenopathy. IMPRESSION: 1. End-stage renal disease, on dialysis. 2. Cardiopulmonary failure. 3. Cardiac arrest. 4. . PLAN: The patient is still on life support. His family pulmonary team. They would like sometime before making a final decision. The patient at this point seems not to be responding very well to external stimuli. The patient is currently off sedation at this point, likely in the context of severe anoxic brain injury. Further management to be dependent on his clinical course. Job ID: [id number]
[2020-04-10] MEDS: Famotidine/PF 20 mg/2ml Vial SLOW IVP SCH (07:14)
[2020-04-10] MEDS: Cefepime 1 GM in Sodium Chloride 0.9% 100 ML IVPB SCH (07:14)
[2020-04-10] MEDS: Amiodarone 200 MG TAB PER TUBE SCH ×2 (07:14→21:16)
[2020-04-10] MEDS: Aspirin Chewable 81 MG TAB PER TUBE SCH (07:14)
[2020-04-10 07:33] LABS: Actual Bicarbonate (HCO3a) 23.7 mEq/L (22-28); Base Excess (BEa) 1.1 mEq/L (-2.0 to +3.0); CO2 Tension 30.7 mmHg (35.0-45.0); Calcium, Ionized (arterial) 1.04 mmol/L (1.12-1.30); Hemoglobin (Hb) 11.1 g/dL (14.0-18.0); O2 Tension (PaO2), arterial 91.5 mmHg (> 80.0); Potassium - ABG Lab 4.25 mmol/L (3.70-5.30); pH, Arterial 7.51 (7.35-7.45)
[2020-04-10 07:34] LABS: Puncture Site LRA
[2020-04-10 07:35] LABS: ALV-art Gradient 153.325 mmHg (0-20)
--- NOTE | 2020-04-10 08:25 | PRG ---
DATE OF SERVICE: SUBJECTIVE: The patient remains on mechanical ventilation. There has been no change overnight. OBJECTIVE: VITAL SIGNS: Temperature 98.8, pulse 100, blood pressure 159/103, O2 saturation 96%. MILIEU TECHNICIAN: Neurologically, the only reflex I can detect is that he can trigger the ventilator. Otherwise, he has a flat neurologic exam. NECK: No adenopathy or JVD. LUNGS: Fairly clear. CARDIAC: S1 and S2 regular with some ectopy. ABDOMEN: Soft. No hepatosplenomegaly. EXTREMITIES: No clubbing, cyanosis, or edema. LABORATORY DATA: 1. ABG, pH 7.51, pCO2 of 30, PO2 91. White blood cell count 15.5, hematocrit 32.5, and platelet count 199. Sodium 135, potassium 4.3, chloride 92, CO2 of 24, BUN 61, creatinine 7.4, glucose 174. ASSESSMENT: 1. Severe anoxic brain injury. 2. Status post prolonged cardiopulmonary arrest. 3. History of chronic renal failure. PLAN: I spoke with the patient's niece over the phone today. I told her that we are now 72 hours out from the initial injury and that there will not be any neurologic recovery beyond what we have seen. I have recommended to her that we proceed with extubation and comfort care. The niece is a liaison to the patient's mother. She said she will talk to the patient's mother today and get back to us with their decision. In the meantime, we are continuing present care. Job ID: [id number]
--- NOTE | 2020-04-10 17:04 | PRG ---
DATE OF SERVICE: 04/10/2020 SUBJECTIVE: The patient is seen and examined. Still on life support. Noted with the following vital signs. OBJECTIVE: VITAL SIGNS: Blood pressure 158/95, heart rate of 72, respiratory rate of 14, and O2 saturations are 97% HEENT: Unremarkable. CARDIOVASCULAR SYSTEM: First and second heart sounds were heard. RESPIRATORY SYSTEM: Revealed vented sounds. DIGESTIVE SYSTEM: Revealed distended abdomen. IMPRESSION: 1. End-stage renal disease. 2. Severe anoxic brain injury. 3. End-stage liver disease. PLAN: The patient is still on life support. Family is to make a final decision. If the patient still remains on life support by tomorrow, will likely undergo dialysis. The prognosis of this patient is very poor, and according to the Critical Care team, the chances of neurologic recovery very remote. Job ID: [id number]
--- NOTE | 2020-04-10 18:02 | PDOC.HOSPP ---
- Subjective Subjective: d/w palliative team, plan for compassionate ext tomorrow and transition to hospice. no sign of recovery - Objective Vital Signs & Weight: Vital Signs (12 hours) Temp Pulse Resp BP Pulse Ox 04/10/20 14:30 70 157/99 H 04/10/20 14:00 97.8 F 04/10/20 13:08 83 169/103 H 04/10/20 11:51 98 F 04/10/20 11:06 98 164/96 H 04/10/20 07:23 81 159/103 H 04/10/20 07:04 32 H 99 04/10/20 07:00 98.8 F Weight Admit Weight 210 lb 1.608 oz Weight 162 lb 7.691 oz Most Recent Monitor Data Heart Rate from ECG 77 NIBP 163/92 NIBP BP-Mean 115 Respiration from ECG 17 SpO2 96 I&O: 04/09/20 04/10/20 04/11/20 06:59 06:59 06:59 Intake Total 9 1462 475 Output Total 0 0 0 Balance 1939 1462 475 Result Diagrams: 04/10/20 03:30 04/10/20 03:30 Additional Labs: Accuchecks 04/10/20 04/10/20 04/09/20 09:17 04:33 21:43 POC Glucose 140 H 194 H 199 H 04/09/20 04/08/20 04/07/20 05:28 14:59 19:54 POC Glucose 188 H 195 H 43 L* Hospitalist ROS - Medication Medications: Active Medications Generic Name Dose Route Start Last Admin Trade Name Freq PRN Reason Stop Dose Admin Acetaminophen 650 mg 04/07/20 19:35 04/07/20 19:57 Acetaminophen 650 Mg/20.3 Ml Udcup PO 650 mg Q4H PRN Administration Fever/Mild Pain Amiodarone HCl 400 mg 04/08/20 21:00 04/10/20 07:14 Amiodarone 200 Mg Tab PER TUBE 400 mg BID KARENA Administration Aspirin 81 mg 04/08/20 09:00 04/10/20 07:14 Aspirin Chewable 81 Mg Tab PER TUBE 81 mg DAILY KARENA Administration Atorvastatin Calcium 40 mg 04/08/20 21:00 04/09/20 21:00 Atorvastatin Calcium 40 Mg Tab PO 40 mg HS KARENA Administration Dextrose/Water 25 gm 04/07/20 19:38 04/08/20 14:00 Dextrose 50% Abboject 50 Ml Syringe SLOW IVP 25 gm PRN PRN Administration Hypoglycemia Famotidine 20 mg 04/07/20 09:00 04/10/20 07:14 Famotidine/Pf 20 Mg/2ml Vial SLOW IVP 20 mg DAILY KARENA Administration Hydralazine HCl 10 mg 04/09/20 12:10 04/09/20 15:23 Hydralazine 20 Mg/Ml Vial SLOW IVP 10 mg Q6H PRN Administration SBP > 180 , DBP > 100 Cefepime HCl 1 gm/ Sodium 100 mls @ 200 mls/hr 04/07/20 09:00 04/10/20 07:14 Chloride IVPB 100 mls DAILY KARENA Administration Dextrose/Water 1,000 mls @ 35 mls/hr 04/08/20 01:15 04/10/20 02:59 Dextrose 10% In Water IV Not Given .Q24H KARENA Morphine Sulfate 2 mg 04/06/20 21:45 04/07/20 23:42 Morphine 2 Mg/Ml Vial SLOW IVP 05/06/20 21:45 2 mg Q1H PRN Administration Breakthrough Pain/Agitation - Exam General - other findings: intubated Eye - other findings: pupil fixed ENT: normocephalic atraumatic Neck: supple Heart: RRR Respiratory: rhonchi Gastrointestinal: soft Neurological - other findings: intubated. no babinski sign Hosp A/P (1) NSTEMI (non-ST elevated myocardial infarction) Code(s): I21.4 - NON-ST ELEVATION (NSTEMI) MYOCARDIAL INFARCTION Status: Acute (2) Acute hypercapnic respiratory failure Code(s): J96.02 - ACUTE RESPIRATORY FAILURE WITH HYPERCAPNIA Status: Acute (3) Cardiac arrest Code(s): I46.9 - CARDIAC ARREST, CAUSE UNSPECIFIED Status: Acute (4) End stage renal disease on dialysis Code(s): N18.6 - END STAGE RENAL DISEASE; Z99.2 - DEPENDENCE ON RENAL DIALYSIS Status: Chronic (5) Hypertension Code(s): I10 - ESSENTIAL (PRIMARY) HYPERTENSION Status: Chronic - Plan Pt suffered prolonged pre-hospital cardiopulmonary arrest, resulted with significant anoxic brain injury. Pt remains intubated and mechanically ventilated. No evidence of neurological recovery. d/w Palliative care team, plan for compassionate ext tomorrow cont supportive cares for now.
[2020-04-10] MEDS: Atorvastatin Calcium 40 MG TAB PO SCH (21:16)
[2020-04-11] MEDS: Dextrose 10% in Water 1,000 ML IV SCH (01:46)
[2020-04-11 02:07] VITALS: BP 157/101
[2020-04-11 05:12] LABS: ALT (SGPT) 33 U/L (8-55); AST (SGOT) 106 U/L (5-34); Albumin 3.1 g/dL (3.4-4.8); Alkaline Phosphatase 149 U/L (40-110); Anion Gap 23 mmol/L (10-20); BUN (Urea Nitrogen) 81 mg/dL (8.4-25.7); Bilirubin, Total 0.6 mg/dL (0.2-1.2); Calc. Creatinine Clearance 9 mL/min (70-130); Calcium 8.4 mg/dL (7.8-10.44); Carbon Dioxide 25 mmol/L (23-31); Chloride 92 mmol/L (98-107); Globulin 5.3 g/dL (2.4-3.5); Glucose 156 mg/dL (80-115); Potassium 4.4 mmol/L (3.5-5.1); Protein, Total 8.4 g/dL (5.8-8.1); Sodium 136 mmol/L (136-145)
[2020-04-11 05:27] LABS: Band 1 % (5-11); Hemoglobin 10.3 g/dL (14.0-18.0); Lymphocytes 3 % (21-51); MDiff Complete? YES; Mean Corpuscular Volume 90.6 fL (78.0-98.0); Mean Platelet Volume 8.3 fL (7.4-10.4); Monocytes 7 % (0-10); Neutrophil 89 % (42-75); Platelet Count 190 thou/uL (130-400); RBC Distribution Width 14.2 % (11.5-14.5); Red Blood Cell (RBC) Count 3.55 mill/uL (4.70-6.10); White Blood Cell (WBC) Count 17.7 thou/uL (4.8-10.8)
--- NOTE | 2020-04-11 09:38 | PRG ---
DATE OF SERVICE: 04/11/2020 SUBJECTIVE: The patient remains unresponsive to deep painful stimuli and made no progress. OBJECTIVE: VITAL SIGNS: Temperature 97.4, pulse 82, blood pressure 171/109, O2 saturation 98%. HEENT: Unchanged. NECK: No JVD. LUNGS: Fairly clear. CARDIAC: S1, S2. Regular. ABDOMEN: Soft. EXTREMITIES: No edema. LABORATORY DATA: Sodium 136, potassium 4.4, chloride 92, CO2 23, BUN 81, creatinine 8.4, glucose 156. White blood cell count 17.7, hematocrit 32.2, and platelet count 190. ASSESSMENT: 1. Anoxic brain injury, status post prolonged cardiopulmonary arrest. 2. Chronic renal failure, requiring hemodialysis. PLAN: Given lack of improvement, it sounds like the family will proceed with compassionate extubation today. I am in full agreement with that plan. Based on that, I will go ahead and withdrawal most of his medications and orders. Job ID: [id number]
[2020-04-11 11:35] VITALS: TEMP 98.4
[2020-04-11] MEDS ORDERED: Morphine 4 MG/ML VIAL SLOW IVP SCH ×2 (11:39→12:00)
[2020-04-11] MEDS ORDERED: Morphine 4 MG/ML VIAL SLOW IVP PRN (11:39)
[2020-04-11] MEDS ORDERED: Lorazepam 2 MG/ML VIAL SLOW IVP PRN (11:39)
[2020-04-11] MEDS ORDERED: Lorazepam 2 MG/ML VIAL SLOW IVP SCH (11:39)
[2020-04-11] MEDS ORDERED: Scopolamine 1.5 mg/72 hour Patch TOP PRN (11:45)
[2020-04-11] MEDS ORDERED: Ondansetron PF 4 MG/2 ML Vial IVP PRN (11:45)
--- NOTE | 2020-04-11 18:51 | PDOC.DS.DS ---
Provider - Provider Date of Admission: 04/06/20 21:35 Date of Discharge: 04/11/20 Admitting Provider: Jose L James DO Consultations: Cardiology, Nephrology, Pulmonary Primary Care Physician: Iván Clayton MD Course - Hospital Course Hospital Course: HISTORY OF PRESENT ILLNESS AND BRIEF HOSPITAL COURSE: Patient is unfortunate 65 years old -[place] gentleman who has significant past medical history of ESRD on hemodialysis, hepatitis C, congestive heart failure, hypertension, medical noncompliance, who was apparently found down unresponsive due to cardiac arrest. He underwent ACLS, and subsequently intubated prehospital setting. Pt admitted to ICU. Pulmonology, nephrology, and cardiology were consulted. Despite aggressive management, patient had no sign of neurological recovery or improvement. He suffered anoxic brain injury from cardiac arrest. Palliative care was consulted. He subsequently decided compassionate extubation, and admit to hospice. PROCEDURE PERFORMED: NONE DISCHARGE CONDITION: Critical Resuscitation Status: 04/07/20 17:52 Resuscitation Status Routine Resuscitation Status: DNAR: NO Resuscitation Discussed with: mother Elenita - Labs Lab Results: 04/11/20 04:40 04/11/20 04:40 Abnormal Lab Results - Last 48 hrs 04/10/20 03:30: Sodium 135 L, Chloride 92 L, Anion Gap 23 H, BUN 61 H, Creatinine 7.48 H, AST 131 H, Alkaline Phosphatase 157 H, Serum Total Protein 8.2 H, Albumin 3.0 L, Globulin 5.2 H, Albumin/Globulin Ratio 0.6 L 04/10/20 03:30: WBC 15.5 H, RBC 3.56 L, Hgb 10.2 L, Hct 32.5 L, MCHC 31.4 L, Neutrophils % 90.1 H, Lymphocytes % 3.9 L, Neutrophils # 14.0 H, Lymphocytes # 0.6 L, Monocytes # 0.9 H 04/10/20 07:25: ABG pH 7.51 H, ABG pCO2 30.7 L, ABG pO2 91.5 H, ABG O2 Content 15.2 L, ABG Hematocrit 33.0 L, ABG Hemoglobin 11.1 L, ABG Deoxyhemoglobin 3.1 H, A-a O2 Gradient 153.325 H, Ionized Calcium 1.04 L, Sodium 133 L, Chloride 96 L 04/11/20 04:40: Chloride 92 L, Anion Gap 23 H, BUN 81 H, Creatinine 8.44 H, AST 106 H, Alkaline Phosphatase 149 H, Serum Total Protein 8.4 H, Albumin 3.1 L, Globulin 5.3 H, Albumin/Globulin Ratio 0.6 L 04/11/20 04:40: WBC 17.7 H, RBC 3.55 L, Hgb 10.3 L, Hct 32.2 L, Neutrophils % (M anual) 89 H, Band Neuts % (Manual) 1 L, Lymphocytes % (Manual) 3 L Microbiology - Entire Visit 04/06/20 20:54 Central Line - Left Common Femoral vein Blood Culture - Pre liminary NO GROWTH AT 48 HOURS 04/06/20 20:58 Venous blood - Left Hand Blood Culture - Preliminary NO GROWTH AT 48 HOURS 04/07/20 02:30 Stool C. difficile GDH Antigen & Toxins - Final - Physical Exam Vitals: Vital Signs (12 hours) Temp Pulse Resp Pulse Ox 04/11/20 11:07 92 04/11/20 10:00 98.4 F 23 H 04/11/20 08:27 75 04/11/20 08:00 25 H 04/11/20 07:36 98 Weight Admit Weight 210 lb 1.608 oz Weight 2.66 oz Most Recent Monitor Data Heart Rate from ECG 103 NIBP 174/106 NIBP BP-Mean 128 Respiration from ECG 21 SpO2 98 Physical Exam: The patient was seen and examined on the day of discharge. Problem - Problem (1) NSTEMI (non-ST elevated myocardial infarction) Code(s): I21.4 - NON-ST ELEVATION (NSTEMI) MYOCARDIAL INFARCTION Status: Acute (2) Acute hypercapnic respiratory failure Code(s): J96.02 - ACUTE RESPIRATORY FAILURE WITH HYPERCAPNIA Status: Acute (3) Cardiac arrest Code(s): I46.9 - CARDIAC ARREST, CAUSE UNSPECIFIED Status: Acute (4) End stage renal disease on dialysis Code(s): N18.6 - END STAGE RENAL DISEASE; Z99.2 - DEPENDENCE ON RENAL DIALYSIS Status: Chronic (5) Hypertension Code(s): I10 - ESSENTIAL (PRIMARY) HYPERTENSION Status: Chronic Plan - Discharge Medications Home Medications: Medication Instructions Recorded Confirmed Type Albuterol Sulfate [Ventolin HFA] 1 puff INH Q4HR PRN 10/19/12 10/19/12 History Amlodipine Besylate 10 mg PO DAILY 10/19/12 10/19/12 History Furosemide [Lasix] 40 mg PO DAILY 10/19/12 10/19/12 History Metoprolol Tartrate [Lopressor] 25 mg PO BID 10/19/12 10/19/12 History Multi-Vitamin Daily 1 tab PO DAILY 10/19/12 10/19/12 History Sevelamer Carbonate [Renvela] 1,600 mg PO TID-WM 10/19/12 10/19/12 History cloNIDine HCl 0.1 mg PO BID 10/19/12 10/19/12 History guaiFENesin/DM ER [Mucinex DM] 1 tab PO BID PRN 10/19/12 10/19/12 History hydrALAZINE HCl 50 mg PO Q8HR 10/19/12 10/19/12 History traZODone HCl 25 - 50 mg PO HS PRN 10/19/12 10/19/12 History Allergies: No Known Drug Allergies Allergy (Unverified 04/06/20 20:22) - Follow up Plan Referrals: Iván Clayton MD [Primary Care Provider] - Disposition: [facility] Quality - Care Measures CORE MEASURES:: N/A
--- NOTE | 2020-04-15 14:57 | PQF ---
CLINICAL DOCUMENTATION CLARIFICATION FORM: Dear : Thomas Ayon MD Date / Time: 04/15/2020 Please exercise your independent, professional judgment in responding to the clarification form. Clinical indicators are provided on the bottom of this form for your review Please check appropriate box(es): [ ] Sepsis due to: [ ] Severe sepsis with associated acute organ dysfunction: [ ] Acute Respiratory Failure [ ] Acute Kidney injury w/o ATN [ ] Acute Kidney Injury w ATN [ ] Encephalopathy (metabolic) (septic) [ ] Disseminated Intravascular Coagulopathy (DIC) [ ] Hepatic Failure [ ] Additional/Other: please specify: [X ] Septic Shock [ ] Localized infection without sepsis [ ] SIRS due to non-infectious process (please specify etiology) [ ] with organ dysfunction [ ] without organ dysfunction [ ] Other diagnosis (Please specify if any) [ ] Unable to determine Physician Signature: Date/Time: For continuity of documentation, please document condition throughout progress notes and discharge summary. Thank You. To be completed by CDI/Coding staff for physician review: Present Clinical Indicators - Signs / Symptoms / Labs Results and Location in Medical Record [ ] Altered mental status, increased confusion, obtunded [x] Fever or hypothermia (<96.8 F/36 C or > 100.4 F/38C) 101.4 Vitals on 04/07 [x] Respiratory rate >20/min, hypoxemia, and or hypercapnia RR-40 Vitals on 04/07 [x] Heart Rate/Tachycardia (>90 bpm), SBP<100mmHg 106 Vitals on 04/08 [x] Acute hypoxic hypercapnic respiratory failure H&P on 04/06 [x] Metabolic acidosis Lactic Acid >2mmol/L OR 36mg/dL, Lactic acid level-12.5 Laboratory on 04/06 [x] Sepsis with unclear source H&P on 04/06 [x] Oliguria , increase BUN/Cr, decreased GFR, elevated liver enzymes Cr-9.05- Laboratory on 04/08; BUN-81- Laboratory on 04/11 [ ] Coag abnormalities, thrombocytopenia plts <100k [ ] Shock-hypotension resistant to IV fluid boluses [x] WBC count (>12,000/mm^4 or <4000/mm^3 or 70% neuts, 10% bands) WBC-23.1H Laboratory on 04/07 [ ] Hyperglycemia in absence of diabetes mellitus [ ] Positive blood cultures Present Risk Factors Results and Location in Medical Record [ ] Infection/Bacteremia [ ] Pneumonia, UTI, infected wound, gangrenous gall bladder Diabetes or Cancer [ ] Surgery / surgical instrumentation / trauma Ruptured/perforated bowel, ruptured appendix [ ] Immunosuppression [x] Advancing Age 65 yrs H&P on 04/06 Present Treatments Results and Location in Medical Record [x] We will continue general sepsis protocol H&P on 04/06 [ ] Daily CBC, blood/sputum/wound cx [ ] ID Consult [ ] IV Antibiotics broad spectrum [x] Vancomycin 1gm Medication on 04/06 [ ] Vasopressors, meds [ ] Consultants; ID, GI, Pulmonary, Hematology CDS/Spice Mixer Signature: AAS Phone #: Date/Time: 04/15/2020 This is a permanent part of the Medical Record [facility]
--- NOTE | 2020-04-20 08:31 | PQF ---
CLINICAL DOCUMENTATION CLARIFICATION FORM: Dear : Thomas Ayon MD Date / Time: 04/20/2020 Please exercise your independent, professional judgment in responding to the clarification form. Clinical indicators are provided on the bottom of this form for your review Please check appropriate box(es): HEART FAILURE: A. ACUITY [ ] Acute [ X] Acute on Chronic [ ] Chronic B. TYPE: [ ] Systolic / HFrEF [ X] Diastolic / HFpEF [ ] Combined Systolic / Diastolic [ ] Hypertensive Heart and Kidney disease [ ] Hypertensive Heart Disease [ ] Hypertensive Kidney Disease [ ] Other diagnosis (Please specify if any) [ ] Unable to determine In addition, please specify: Present on Admission (POA): [ X ] Yes [ ] No [ ] Unable to determine Physician Signature: Date/Time: For continuity of documentation, please document condition throughout progress notes and discharge summary. Thank You. To be completed by CDI/Coding staff for physician review: Present Clinical Indicators - Signs / Symptoms / Labs Results and Location in Medical Record [x] Ejection Fraction = 50 -55 % ECHO on 04/07 [x] Rt ventricular systolic pressure was moderately elevated ECHO on 04/07 [x] Acute hypoxic hypercapnic respiratory failure H&P on 04/07 [x] Elevated BNP 03644.4 Laboratory on 04/06 [x] Congestive heart failure, unknown type H&P on 04/07 [ ] Orthopnea / SOB / dyspnea [x] Evidence of small effusion Chest x ray on 04/07 [x] CXR results - cardiomegaly Chest x ray on 04/07 [ ] Arrhythmia--tachycardia Present Risk Factors Results and Location in Medical Record [ ] History of CAD/ischemic heart disease [x] CKD Hypertension H&P on 04/07 [x] NM Present Treatments Results and Location in Medical Record [ ] Administration of ARTEM / ARB / BB [x] Apresoline 10 mg Medication on 04/06 [ ] IV or PO diuretics [ ] Oxygen [ ] AICD [ ] Cardiology Consult CDS/E Learning Developer Signature: AAS Phone #: Date/Time: 04/20/2020 This is a permanent part of the Medical Record [facility]
--- NOTE | 2020-04-20 09:15 | PQF ---
CLINICAL DOCUMENTATION CLARIFICATION FORM: Dear : Thomas Ayon MD Date / Time: 04/20/2020 Please exercise your independent, professional judgment in responding to the clarification form. Clinical indicators are provided on the bottom of this form for your review Please check appropriate box(es): [ ] Acute Renal Failure (ARF) / Acute Kidney Injury (DREW) [ ] Acute Tubular Necrosis (ATN) [ ] Acute Cortical Necrosis [ ] Acute Medullary Necrosis [ ] Other Etiology or underlying conditions related to the diagnosis of ARF/ DREW: [ ] Acute Interstitial Nephritis (AIN) [ ] Due to IV Contrast [ ] Other: [ ] Acute on Chronic Renal Failure [ X ] ESRD [ ] Other diagnosis (Please specify if any) [ ] Unable to determine In addition, please specify: Present on Admission (POA): [ X ] Yes [ ] No [ ] Unable to determine Physician Signature: Date/Time: For continuity of documentation, please document condition throughout progress notes and discharge summary. Thank You. To be completed by CDI/Coding staff for physician review: Present Clinical Indicators - Signs / Symptoms / Labs Results and Location in Medical Record [ ] Decreased urine output (< 30 ml hr) / prolonged azotemia / documentation of oliguria / anuria) [x] Abnormal labs (BUN, creatinine, K+, creatinine clearance, low GFR) Cr- 7.80,7.77,9.05,6.39,7.48,8.44 Laboratory on 04/06, 04/07, 04/08, 04/09, 04/10, 04/11 [ ] Hypotension with prolonged decreased renal perfusion [ ] Urinalysis (epithelial cells, muddy brown granular casts, and/or coarse granular casts urine Na > 40) [x] Metabolic acidosis Progress notes on 04/08 [x] ESRD with hemodialysis H&P on 04/07 [ ] Nausea / Vomiting / Diarrhea [x] Edema Consult on 04/12 [ ] Lethargy or fatigue Present Risk Factors Results and Location in Medical Record [x] Hypertension H&P on 04/07 [ ] Use of ARTEM inhibitors, NSAIDS, diuretics [ ] Nephrotoxins (drugs and contrast) [ ] Primary renal disease, vasculitis or interstitial nephritis [ ] Obstructive Nephropathy [ ] Shock Present Treatments Results and Location in Medical Record [ ] IV ?uid challenge result [x] nephrology consult Consult on 04/08 [ ] Dialysis [x] Electrolytes replacement protoc Medication on 04/06 CDS/Truck Driver Helper Signature: KATERINE Phone #: Date/Time: 04/20/2020 This is a permanent part of the Medical Record [facility]
--- NOTE | 2020-04-20 09:44 | PQF ---
CLINICAL DOCUMENTATION CLARIFICATION FORM: Dear : Thomas Ayon MD Date / Time: 04/20/2020 Please exercise your independent, professional judgment in responding to the clarification form. Clinical indicators are provided on the bottom of this form for your review Please check appropriate box(es): to clarify the acquity of end stage liver disease [ ] Acute ESLD [X ] Chronic ESLD [ ] Acute on chronic ESLD [ ] Other diagnosis (Please specify if any) [ ] Unable to determine In addition, please specify: Present on Admission (POA): [X ] Yes [ ] No [ ] Unable to determine Physician Signature: Date/Time: For continuity of documentation, please document condition throughout progress notes and discharge summary. Thank You. To be completed by CDI/Coding staff for physician review: Present Clinical Indicators - Signs / Symptoms / Labs Results and Location in Medical Record [x ] End stage liver disease in the context of possible hepatitis C infection Consult on 04/08 [x ] Patient does have gross ascites Consult on 04/08 [x ] Extremities : showed trace edema Consult on 04/08 [x ] Albumin 2.9 Laboratory on 04/06 [x ] AST-170 h Laboratory on 04/09 [x ] End stage liver disease Progress notes on 04/10 Present Risk Factors Results and Location in Medical Record [x ] cirrhosis H&P on 04/07 [x ] ESRD H&P on 04/07 Present Treatments Results and Location in Medical Record [x ] Status post recurrent paracentesis Consult on 04/08 [ ] [ ] [ ] CDS/Wood Calker Signature: AAS Phone #: Date/Time: 04/20/2020 This is a permanent part of the Medical Record [facility]
--- NOTE | 2020-04-20 10:13 | PQF ---
CLINICAL DOCUMENTATION CLARIFICATION FORM: Dear : Thomas Ayon MD Date / Time: 04/20/2020 Please exercise your independent, professional judgment in responding to the clarification form. Clinical indicators are provided on the bottom of this form for your review Please check appropriate box(es): [ ] Type 1 MO (NSTEMI) [ X ] Type 2 MO (T2MI) secondary to: [ ] hypertension [ X] arrhythmia [ X] Infection [ ] severe anemia [ ] ischemic stroke [ ] renal failure [ ] heart failure [ ] other [ ] Type 3 MO (sudden without cardiac biomarker and/or with evidence of MO by autopsy) [ ] Type 4-5 MO (MO with PCI/PCI stent thrombosis, PCI re-stenosis or CABG related MO) [ ] Myocardial Infarction with no obstructive coronary atherosclerosis (MINOCA) (MINOCA is a classification independent from the UDMI and includes patients with Type I & Type 2 MO) [ ] Other diagnosis (Please specify if any) [ ] Unable to determine Physician Signature: Date/Time: For continuity of documentation, please document condition throughout progress notes and discharge summary. Thank You To be completed by CDI/Coding staff for physician review: Present Clinical Indicators - Signs / Symptoms / Labs Results and Location in Medical Record [x] Elevated biomarkers (CK-MB, Troponin T or I) Troponin 5.373 laboratory on 04/07 [x] Septic shock Query response on 04/15 [x] Rt ventricular systolic pressure was moderately elevated ECHO on 04/07 [x] Cardiac arrest with return of spontaneous circulation H&P on 04/07 [x] NSTEMI Discharge summary on04/11 [x] Calcifications are seen in the coronary arteries and aorta CTA on 04/06 Present Risk Factors Results and Location in Medical Record [x] Hypertension H&P on 04/07 [ ] History of Coronary Artery Disease [ ] High Cholesterol/Lipids [ ] History of Diabetes [ ] History of MO Present Treatments Results and Location in Medical Record [ ] Heart cath / percutaneous intervention [ ] Anticoagulation / TPA [x] Amiodarone was given and the patient was placedon amiodarone drip ED provider report on04/06 [x] ACLS protocol H&P on 04/07 [ ] Vasodilators [ ] Continuous cardiac monitoring [x] Cardiac consult Consult on 04/07 CDS/Front Desk Officer Signature: KATERINE Phone #: Date/Time: 04/20/2020 This is a permanent part of the Medical Record [facility]
--- NOTE | 2020-04-25 06:24 | PQF ---
CLINICAL DOCUMENTATION CLARIFICATION FORM: Dear : Thomas Ayon Date / Time: 04/25/2020 Please exercise your independent, professional judgment in responding to the clarification form. Clinical indicators are provided on the bottom of this form for your review Please check appropriate box(es): to clarify the diagnosis occasioning this admission [ X ] Cardiac arrest due to septic shock [ ] Cardiac arrest due to CHF [X ] Cardiac arrest due to type 2 MS [ ] Cardiac arrest due to respiratory failure [ ] Other diagnosis (Please specify if any) [ ] Unable to determine Physician Signature: Date/Time: For continuity of documentation, please document condition throughout progress notes and discharge summary. Thank You. To be completed by CDI/Coding staff for physician review: Present Clinical Indicators - Signs / Symptoms / Labs Results and Location in Medical Record [x] Septic shock Sepsis physician query on 04/15 [x] Type 2 MS secondary to arrhythmia, infection MS physician query on 04/20 [x] Acute on chronic diastolic CHF Heart failure physician query on 04/20 [x] Acute hypoxic hypercapnic respiratory failure H&P on 04/07 [x] Lactic acid-12.5, WBC-23.1 Laboratory on 04/06, 04/07 [x] Suspect the primary etiology of this cardiac arrest with an arrythmia ED provider report on 04/06 [x] Status post prolonged cardiopulmonary arrest, Inciting event seems to have been a primary cardiac event such as an arrhythmia or myocardial infarction Consult on 04/07 Present Risk Factors Results and Location in Medical Record [x] ESRD, Hypertension H&P on 04/07 [x] Aged person 65 yrs H&P on 04/07 Present Treatments Results and Location in Medical Record [x] Apresoline 10 mg Medication on 04/06 [x] He had at least 30 min of CPR before return of spontaneous circulation Consult on 04/07 [x] Patient underwent CPR and ACLS protocol H&P on 04/07 [x] Patient received magnesium in addition to vasopresor support with levophed H&P on 04/07 [x] Intubated prior to admission and continued on mechanical ventilation with SIMV H&P on 04/07 [x] Patient received empiric antibiotic coverage with cefepime & vancomycin during initial resuscitation H&P on 04/07 CDS/Automobile Body Customizer Signature: AAS Phone #: Date/Time: 04/25/2020 This is a permanent part of the Medical Record [facility]
== END 2020-04-11 11:39 | disposition hospice, inpatient (51) | DRG 870 ==
LOC: ERS 19:51 → CCU 21:35
PROVIDERS: ADMIT Family Medicine; ATTEND Family Medicine
PROC: 5A12012 Performance of Cardiac Output, Single, Manual (ICD-10-PCS; principal; 2020-04-06)
PROC: 5A1955Z Respiratory Ventilation, Greater than 96 Consecutive Hours (ICD-10-PCS; 2020-04-06)
PROC: 0BH17EZ Insertion of Endotracheal Airway into Trachea, Via Natural or Artificial Opening (ICD-10-PCS; 2020-04-06)
PROC: 5A2204Z Restoration of Cardiac Rhythm, Single (ICD-10-PCS; 2020-04-06)
PROC: 06HY33Z Insertion of Infusion Device into Lower Vein, Percutaneous Approach (ICD-10-PCS; 2020-04-06)
PROC: 3E033XZ Introduction of Vasopressor into Peripheral Vein, Percutaneous Approach (ICD-10-PCS; 2020-04-06)
PROC: 3E02340 Introduction of Influenza Vaccine into Muscle, Percutaneous Approach (ICD-10-PCS; 2020-04-07)
DX: A41.9 Sepsis, unspecified organism (principal); I21.A1 Myocardial infarction type 2; N18.6 End stage renal disease; L89.893 Pressure ulcer of other site, stage 3; J96.01 Acute respiratory failure with hypoxia; G92 Toxic encephalopathy; J96.02 Acute respiratory failure with hypercapnia; R65.21 Severe sepsis with septic shock; I50.33 Acute on chronic diastolic (congestive) heart failure; G93.1 Anoxic brain damage, not elsewhere classified; I13.2 Hypertensive heart and chronic kidney disease with heart failure and with stage 5 chronic kidney disease, or end stage renal disease; E87.2 Acidosis; R18.8 Other ascites; I47.1 Supraventricular tachycardia; Z51.5 Encounter for palliative care; R77.8 Other specified abnormalities of plasma proteins; E03.9 Hypothyroidism, unspecified; Z99.2 Dependence on renal dialysis; Z86.19 Personal history of other infectious and parasitic diseases; Z20.828 Contact with and (suspected) exposure to other viral communicable diseases; I45.10 Unspecified right bundle-branch block; K72.90 Hepatic failure, unspecified without coma; Z78.1 Physical restraint status; Z66 Do not resuscitate; Z23 Encounter for immunization
CPT/HCPCS: 36415; 36416; 36556; 36600; 51702; 70450; 71045; 71275; 74177; 80053; 82330; 82550; 82553; 82803; 82805; 83605; 83690; 83735; 83880; 84439; 84443; 84484; 85025; 85610; 85730; 87040; 87324; 87340; 87449; 90935; 92950; 92960; 93005; 93306; 94003; 94760; 96365; 96367; 96368; 96374; 96375; 96376; G0257; J0171; J0282; J0360; J0692; J2270; J2310; J2920; J2930; J3010; J3370; J3475; J3490; J7070; Q9967; S0028; U0002

== ENCOUNTER 2020-04-11 11:40 | Inpatient (IN) | payer OTHER ==
[2020-04-11] MEDS ORDERED: Morphine 4 MG/ML VIAL ONE (12:18)
[2020-04-11] MEDS ORDERED: Lorazepam 2 MG/ML VIAL ONE (12:19)
[2020-04-11] MEDS ORDERED: Lorazepam 2 MG/ML VIAL SLOW IVP PRN ×2 (12:34→12:36)
[2020-04-11] MEDS ORDERED: Morphine 4 MG/ML VIAL SLOW IVP PRN ×2 (12:35→12:36)
[2020-04-11 12:45] VITALS: BMI 22.4
[2020-04-11] MEDS ORDERED: Ondansetron PF 4 MG/2 ML Vial IVP PRN (12:45)
[2020-04-11 12:52] VITALS: BP 72/43; TEMP 98.4
[2020-04-11] MEDS ORDERED: Scopolamine 1.5 mg/72 hour Patch TOP SCH (13:00)
[2020-04-11] MEDS ORDERED: Morphine 4 MG/ML VIAL SLOW IVP SCH (14:00)
--- NOTE | 2020-04-11 18:39 | PRG ---
DATE OF SERVICE: 04/11/2020 SUBJECTIVE: The patient is seen and examined. Still on life support. Noted with the following vital signs. OBJECTIVE: VITAL SIGNS: Afebrile, temperature 98.4, pulse 43, . HEENT: Unremarkable. CARDIOVASCULAR SYSTEM: First and second heart sounds were heard. RESPIRATORY SYSTEM: Showed vented sounds. DIGESTIVE SYSTEM: Revealed distended abdomen. IMPRESSION: 1. End-stage renal disease. 2. Cardiopulmonary failure, status post cardiac arrest. PLAN: No dialysis today. The patient is undergoing terminal extubation. Further management to be dependent on the clinical course. Job ID: [id number] [facility]
== END 2020-04-11 12:34 | disposition expired | DRG 951 ==
LOC: CCU 11:40
PROVIDERS: ADMIT Family Medicine; ATTEND Family Medicine
DX: Z51.5 Encounter for palliative care (principal); A41.9 Sepsis, unspecified organism; N18.6 End stage renal disease; J96.01 Acute respiratory failure with hypoxia; J96.02 Acute respiratory failure with hypercapnia; G92 Toxic encephalopathy; I13.2 Hypertensive heart and chronic kidney disease with heart failure and with stage 5 chronic kidney disease, or end stage renal disease; Z66 Do not resuscitate; Z20.828 Contact with and (suspected) exposure to other viral communicable diseases; B18.2 Chronic viral hepatitis C; I46.9 Cardiac arrest, cause unspecified; Z91.14 Patient's other noncompliance with medication regimen; Z99.2 Dependence on renal dialysis; Z79.899 Other long term (current) drug therapy
CPT/HCPCS: J2060; J2270